=== PATIENT | male | born 1995 | race Caucasian/White ===

== ENCOUNTER 2024-10-17 11:09 | Emergency (ER) | payer OTHER, SELFPAY ==
[2024-10-17 11:10] VITALS: BP 135/85; PULSE 97; RESP 16; TEMP 35.8; O2SAT 99; BMI 32.8
[2024-10-17 11:21] VITALS: BMI 32.1
--- NOTE | 2024-10-17 11:35 | CT_ITS ---
EXAM: CT HEAD WITHOUT INTRAVENOUS CONTRAST CLINICAL INDICATION: L sided facial droop TECHNIQUE: Multiple axial images were obtained of the head without intravenous contrast. This CT exam was performed using one or more of the following dose reduction techniques: automated exposure control, adjustment of the mA and/or kV according to patient size, and/or use of iterative reconstruction technique. COMPARISON: No relevant prior studies available. FINDINGS: BRAIN AND EXTRA-AXIAL SPACES: Normal. Normal brain attenuation. No intra- or extra-axial hemorrhage. No acute infarct. No intracranial mass or mass effect. There is preservation of the hernandez/white matter interface. Posterior fossa structures are unremarkable. Ventricles are appropriate for age. No hydrocephalus. Basal cisterns are patent. BONES/JOINTS: Normal calvarium. SINUSES: No acute sinusitis. MASTOID AIR CELLS: Normal. Clear. CT/Brain/Head without Contrast IMPRESSION: Normal CT brain without intravenous contrast. Electronically Signed: Osorio Damian MD at 12:41 EST ,
--- NOTE | 2024-10-17 11:36 | EDS_ITS ---
HPI <DUGLAS Fan - Last Filed: 10/17/24 12:56> History of Present Illness Chief Complaint: Neuro S/Sx Narrative Narrative: Patient presenting today with concerns for a left-sided facial droop/paralysis that started this morning when he woke up. He reports that last night he went to bed and felt normal. He has been feeling intermittent tingling to the left side of his face over the last several days. He denies a PMH of any chronic medical conditions, no recent tick bites, he denies any weakness in his extremities. He denies fevers and chills. PFSH <DUGLAS Fan - Last Filed: 10/17/24 12:56> PFSH Medical History no medical history Home Medications ?Medication ?Instructions ?Recorded ?Last Taken ?Type famciclovir 500 mg tablet 500 mg PO Q8H 5 days #15 tabs 10/17/24 Unknown Rx prednisone 20 mg tablet 40 mg (2 x 20 mg) PO DAILY 7 days 10/17/24 Unknown Rx #14 tabs Allergy/AdvReac Type Severity Reaction Status Date / Time No Known Allergies Allergy Verified 10/17/24 11:12 Family History no significant family his Surgical History no surgical history Social History Smoking Status: Never smoker ROS <DUGLAS Fan - Last Filed: 10/17/24 12:56> ROS ED Constitutional Constitutional ED: Denies chills or fever(s) Eyes Eyes: Denies change in vision ENT ENT ED: Denies ear pain Cardiovascular Cardiovascular: Denies chest pain Respiratory/Chest Respiratory/Chest: Denies dyspnea Gastrointestinal Gastrointestinal: Denies abdominal pain, nausea or vomiting Musculoskeletal Musculoskeletal: Denies arthralgias or myalgias Integumentary Denies rash Neurologic Neurologic: Denies headache(s), loss of vision, sensory deficit or weakness EXAM <DUGLAS Fan - Last Filed: 10/17/24 12:56> Physical Exam Const Vital Signs: 10/17/24 11:10 10/17/24 12:52 Temperature 96.5 F L 97.6 F L Temperature Source Temporal Pulse Rate 97 87 Respiratory Rate 16 16 Blood Pressure 135/85 H 121/89 H Blood Pressure Mean 101 99 Pulse Ox 99 99 Oxygen Delivery Method Room Air Positive well nourished, well developed and no apparent distress General Appearance ED: well developed HEENT Reports normocephalic and head/scalp atraumatic Mouth ED: Yes moist mucous membranes normal Eyes PERRL and EOMs intact bilaterally Neck full ROM and supple Chest Wall inspection of chest normal Resp normal respiratory effort and clear to auscultation bilaterally Cardio regular rate and regular rhythm GI soft to palpation, non-tender, non-distended and no masses Back/Spine normal ROM and normal to inspection Extremity normal to inspection and full ROM Neuro oriented x3, moves all extremities and no focal motor deficits Neuro Narrative: Left-sided facial paralysis, patient is unable to wrinkle the left brow, fully close the left eye, also has a left lip droop. Decreased sensation on the left side of the face in comparison to the right. Otherwise no other deficits, strength and sensation 5/5 upper and lower extremities, normal gait. Sensorium / Orientation: awake and alert Psych mental status grossly normal and thought process normal Skin no rashes or lesions noted and no wounds <Dr. Valdez Singh MD - Last Filed: 10/17/24 11:53> Physical Exam Const Vital Signs: 10/17/24 11:10 10/17/24 12:52 Temperature 96.5 F L 97.6 F L Temperature Source Temporal Pulse Rate 97 87 Respiratory Rate 16 16 Blood Pressure 135/85 H 121/89 H Blood Pressure Mean 101 99 Pulse Ox 99 99 Oxygen Delivery Method Room Air [facility] <DUGLAS Fan - Last Filed: 10/17/24 12:56> [facility] Narrative Medical decision making narrative: Patient presenting today with left-sided facial paralysis that started this morning when he woke up. His examination is consistent with Tamayo's palsy. He is unable to wrinkle the brow on the left, fully close his left eye, he has a left-sided lip droop with decreased sensation on the left side of his face in comparison to the right. He does not have any other deficit. Head CT will be obtained to rule out intracranial abnormality. He otherwise is nontoxic- appearing and in no acute distress. Head CT is negative for any acute findings. He was given prescriptions for prednisone and famciclovir. I recommended he follow-up with his PCP. He will be discharged home in stable condition. I have personally performed a face to face assessment of the patient and have reviewed the JOSE JUAN Note. I performed a substantive portion of the visit including all aspects of the following. My qureshi findings include: History is 29-year-old male healthy left-sided facial droop today. No headache. No trauma. No arm or leg weakness. No ataxia. No prior history. Exam is [for 9-year-old male vital signs stable afebrile. HEENT exam tongue midline. Normal speech. He has a left facial droop with the corner of his mouth. Unable to completely close his left eye and forehead involvement. Lungs clear. Heart regular rate and rhythm. Abdomen soft nontender. Moving all 4 extremities. 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 Dorsi plantarflexion intact. He can lift either arm or leg with no drift. [id number] within normal limits. Fingertip to nose within normal limits. Neurologic exam other than the facial droop is unremarkable.] Medical Decision Making [29-year-old suspect Tamayo's palsy. CT brain. Is all is at negative to be discharged to home on Famvir and prednisone.] Other additions or changes: [None] Lab Data Labs: Laboratory Results - last 24 hr 10/17/24 11:23 POC Glucose 94 Radiography Diagnostic Testing: Clinical Impression(s) from Imaging Studies Brain CT 10/17/24 11:35 IMPRESSION: Normal CT brain without intravenous contrast. Electronically Signed: Osorio Damian MD at 12:41 EST , <Dr. Valdez Singh MD - Last Filed: 10/17/24 11:53> [facility] Narrative Medical decision making narrative: Patient presenting today with left-sided facial paralysis that started this morning when he woke up. His examination is consistent with Tamayo's palsy. He is unable to wrinkle the brow on the left, fully close his left eye, he has a left-sided lip droop with decreased sensation on the left side of his face in comparison to the right. He does not have any other deficit. Head CT will be obtained to rule out intracranial abnormality. He otherwise is nontoxic- appearing and in no acute distress. I have personally performed a face to face assessment of the patient and have reviewed the JOSE JUAN Note. I performed a substantive portion of the visit including all aspects of the following. My qureshi findings include: History is 29-year-old male healthy left-sided facial droop today. No headache. No trauma. No arm or leg weakness. No ataxia. No prior history. Exam is [for 9-year-old male vital signs stable afebrile. HEENT exam tongue midline. Normal speech. He has a left facial droop with the corner of his mouth. Unable to completely close his left eye and forehead involvement. Lungs clear. Heart regular rate and rhythm. Abdomen soft nontender. Moving all 4 extremities. 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 Dorsi plantarflexion intact. He can lift either arm or leg with no drift. [id number] within normal limits. Fingertip to nose within normal limits. Neurologic exam other than the facial droop is unremarkable.] Medical Decision Making [29-year-old suspect Tamayo's palsy. CT brain. Is all is at negative to be discharged to home on Famvir and prednisone.] Other additions or changes: [None] History & Record Review Discussion w/independent historian: Patient and Family Additional record(s) reviewed:: Prior inpatient record Lab Data Attestation: I reviewed the patient's lab results. Lab results narrative: Glucose 94. Labs: Laboratory Results - last 24 hr 10/17/24 11:23 POC Glucose 94 Radiography Diagnostic Testing: Clinical Impression(s) from Imaging Studies Brain CT 10/17/24 11:35 IMPRESSION: Normal CT brain without intravenous contrast. Electronically Signed: Osorio Damian MD at 12:41 EST , Discharge Plan Triage Chief Complaint: Neuro S/Sx ED Midlevel Provider: Anni Salgado ED Provider: Valdez Singh Dx/Rx/DC Orders Clinical Impression: Tamayo's palsy Instructions: ED Tamayo's Palsy Prescriptions: New famciclovir 500 mg tablet 500 mg PO Q8H 5 Days Qty: 15 0RF prednisone 20 mg tablet 40 mg PO DAILY 7 Days Qty: 14 0RF Primary Care Provider: Care Physician,No Primary Referrals: NOT,DEFINED [Non-Staff] - Activity Restrictions/Additional Instructions: You have paralysis of your left facial nerve causing a left facial droop. Prednisone daily for 1 week. Famvir as prescribed 3 times a day for 5 days. Tape your eye closed at night and use artificial tears during the day to prevent the eye from drying out you developing an ulcer to your eye. When you can open and close it normally you can stop doing this. Follow-up with your doctor as needed. Print Language: Salvadorean Disposition Disposition: Home, Self Care Discharge Date/Time: 10/17/24 12:54
[2024-10-17 11:40] LABS: Bedside Glucose 94 mg/dL (74-106)
[2024-10-17 12:52] VITALS: BP 121/89; PULSE 87; RESP 16; TEMP 36.4; O2SAT 99
== END 2024-10-17 12:54 | disposition home or self-care (01) ==
LOC: ED 12:10
PROVIDERS: Emergency Provider Emergency Medicine; Referring Provider Emergency Medicine; Visit Provider Emergency Medicine
DX: G51.0 Bell's palsy (principal)
CPT/HCPCS: 70450; 82962; 99282; A4216